=== PATIENT | female | born 1970 | race Caucasian/White ===

== ENCOUNTER 2018-01-21 11:33 | Outpatient (CLI) | payer OTHER, SELFPAY ==
[2018-01-21 14:31] LABS: TSH (W/Ref FT4) 1.79 uIU/mL (0.358-3.74)
[2018-01-22 13:42] LABS: Anion Gap 10.7 mmol/L (3-11); BUN 17 mg/dL (7-18); CO2 26.3 mmol/L (21.0-32.0); CREATININE 0.92 mg/dL (0.55-1.02); Calcium 8.8 mg/dL (8.5-10.1); Chloride 104 mmol/L (98-107); Cholesterol 186 mg/dL (50-200); Glucose 143 mg/dL (70-100); HDL Cholesterol 62 mg/dL (40-60); LDL CHOLESTEROL 115 mg/dL (<100); Potassium 4.1 mmol/L (3.5-5.1); Sodium 141 mmol/L (136-145); Triglyceride 91 mg/dL (30-150)
== END 2018-01-21 11:53 ==
PROVIDERS: PCP Nurse Practitioner Family; Visit Provider Nurse Practitioner Family
DX: E03.9 Hypothyroidism, unspecified (principal); Z00.00 Encounter for general adult medical examination without abnormal findings
CPT/HCPCS: 36415; 80048; 80061; 83721; 84443

== ENCOUNTER 2018-09-16 15:27 | Emergency (ER) | payer OTHER, SELFPAY ==
[2018-09-16 15:31] VITALS: BP 123/94; PULSE 90; RESP 18; O2SAT 97
--- NOTE | 2018-09-16 15:45 | ED.GENADUL_ITS ---
Discharge Plan Disposition Patient Disposition: HOME Condition: Stable Discharge Details Chief Complaint: Nk/Back Pain Clinical Impression: Back pain Primary Care Provider: Nataliia Looney ED Provider: Lupe Covarrubias Home Meds and New Rx's Prescriptions: Continued levothyroxine 137 mcg tablet 137 mcg PO DAILY Qty: 90 RF: 4 Discharge Instructions Instructions: Back Pain (ED) Additional Instructions: Please return immediately to the emergency department he develop any new or worsening symptoms or if you become otherwise concerned. It is extremely important that you make an appointment to be seen as soon as possible by your primary care doctor in follow-up for this visit. Referrals: Nataliia Looney, RECEPTIONIST TELEPHONE OPERATOR [Primary Care Provider] - Tono Johnson PT [PHYSICAL THERAPIST] - Discharge Data Discharge Date/Time-TO BE ENTERED AT DEPARTURE: 09/16/18 18:00 Medical Decision Making Barbara Delaney is a 48 y/o woman with h/o hypothyroidism who presented to the emergency department with suddent onset low back that occurred JPTA while upstairs at work bending forward, has occurred in the past as well. On exam Pt is well and non-toxic appearing. No TTP of the back, no neuro deficit. Exam/hx not c/w aortic etiology, cauda equina syndrome, epidural abscess/hematoma or other cord compression, infectious etiology. Suspect lumbar strain vs disc herniation. Discussed treatment options with Pt including muscle relaxants, steroids, pain meds: Pt requested no treatment at this time, wants to rest, s tates this type of pain has always improved in the past with rest and no other intervention. Pt able to walk slowly but without other issue. I had a lengthy discussion with the Pt re: RTED precautions, importance of outpt f/u and home care. Pt verbalized understanding of the plan and was amenable. Pt was d/davin to home with clear plan for outpt f/u. All questions were answered. Pt walked out of ED without issue. HPI General Mode of arrival: ambulatory . Date/Time Provider Initiated Documentation: 09/16/18 15:44 . Limitations to Documentation: no limitations . Information obtained by: patient, RN notes reviewed and old records reviewed . HPI Narrative: Barbara Delaney is a 48 y/o woman with h/o hypothyroidism presenting to the emergency department with back pain. Pt reports that she works at [employer]. She states that she bent over and had sudden onset low back pain. Was not lifting at the time. Pt reports that pain felt like an electrical sensation in her low mid back, does not radiate. Pain is worse with standing and moving, improved with lying down. No numbness, weakness, tingling in the legs or saddle region. 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 Pt reports that she was previously well and in her usual state of health. Has been eating and drinking as usual. Takes no blood thinners, no h/o IVDU. She denies any other pain. Related Data Home Medications Medication Instructions Recorded Confirmed levothyroxine 137 mcg tablet 137 mcg PO DAILY #90 tab-cap 01/21/18 01/21/18 Previous Rx's Medication Instructions Recorded levothyroxine 137 mcg tablet 137 mcg PO DAILY #90 tab-cap 01/21/18 Allergies Allergy/AdvReac Type Severity Reaction Status Date / Time No Known Allergies Allergy Unverified 10/09/17 08:19 General Stated Complaint: Nk/Back Pain LEO: 3 Review of Systems Review of Systems Constitutional: denies fevers Eyes: denies eye pain ENT: denies facial pain, dental pain, sore throat Cardiovascular: denies chest pain, edema Respiratory: denies SOB, cough GI: denies abdominal pain, vomiting, diarrhea : denies flank pain MSK: denies neck pain, arthralgias, myalgias, reports low back pain Skin: denies rash Neuro: denies headaches, numbness, weakness [facility] Medical History Hypothyroidism (Chronic 09/17/12) Surgical History History of bilateral ligation of fallopian tubes (Inactive ~2001) Family History Mother COPD (chronic obstructive pulmonary disease) Father Brain cancer Lung cancer Sister Alcohol abuse Brother Stroke Sister Alcohol abuse Daughter No problems noted. Daughter No problems noted. Daughter No problems noted. Maternal Grandfather No problems noted. Maternal Grandmother Alzheimer disease Paternal Grandfather Myocardial infarction Heart disease Paternal Grandmother Breast cancer Social History Smoking/Tobacco Use Status: Never Alcohol Intake: current Alcohol Intake frequency: 0-2 drinks per day Substance use type: does not use Household members: other Details: 5 current occupation: RN Pets and animals: Yes Pets and animals: dog(s) Duration: 45-60 minutes/day Frequency: 1-2 times per week Kareen/Gnosticist: Hindu Special kareen needs: No Seatbelt use: always Do you feel safe at home: Yes Do you feel safe in your relationship?: Yes Exam Narrative Exam Narrative: Constitutional: well and [id number], pleasant, conversing normally, appears uncomfortable with movement HENT: head atraumatic/normocephalic/normal inspection, mucous membranes moist Eyes: conjunctiva normal, sclera normal, pupils 3mm b/l Neck: no stridor, normal ROM, trachea midline Resp: normal work of breathing, LCTAB Cardio: normal rate, normal rhythm, no murmur appreciated GI: abdomen soft, non-tender, non-distended, no mass Back: normal inspection, no rash, no vertebral or pasraspinal TTP, no crepitus, no deformity Skin: warm, dry, normal color, no rash Neuro: alert, not altered, grossly non-focal, normal tone, motor 5/5 b/l LEs, sensation intact b/l LEs and saddle region Ext: no edema Psych: normal mood, normal affect, normal behavior Course Vital Signs Pulse 90 09/16/18 15:31 Respiratory Rate 18 09/16/18 15:31 Blood Pressure 123/94 H 09/16/18 15:31 Pulse Oximetry 97 09/16/18 15:31 Pulse 90 09/16/18 15:31 Respiratory Rate 18 09/16/18 15:31 Respiratory Effort 09/16/18 15:35 Blood Pressure 123/94 H 09/16/18 15:31 Blood Pressure Position Standing 09/16/18 15:31 Pulse Oximetry 97 09/16/18 15:31 Oxygen Delivery Method Room Air 09/16/18 15:31 Oxygen Flow Rate 0 09/16/18 15:31
--- NOTE | 2018-09-16 17:51 | NUR.NOTE ---
pt easily ambulated to the BR states feeling better Nursing Note:
== END 2018-09-16 18:00 | disposition home or self-care (01) ==
PROVIDERS: Emergency Provider Student in an Organized Health Care Education/Training Program; PCP Nurse Practitioner Family
DX: M54.5 Low back pain (principal); X50.9XXA Other and unspecified overexertion or strenuous movements or postures, initial encounter; Y99.0 Civilian activity done for income or pay
CPT/HCPCS: 81025; 99282

== ENCOUNTER 2019-01-24 06:39 | Outpatient (CLI) | payer OTHER, SELFPAY ==
[2019-01-24 07:55] LABS: Anion Gap 9.8 mmol/L (3-11); BUN 13 mg/dL (7-18); CO2 28.2 mmol/L (21.0-32.0); CREATININE 0.83 mg/dL (0.55-1.02); Calcium 9.3 mg/dL (8.5-10.1); Calculated LDL 127 mg/dL; Chloride 102 mmol/L (98-107); Cholesterol 212 mg/dL (50-200); Glucose 82 mg/dL (70-100); HDL Cholesterol 71 mg/dL (40-60); Potassium 4.4 mmol/L (3.5-5.1); Sodium 140 mmol/L (136-145); TSH 4.46 uIU/mL (0.36-3.74); Triglyceride 73 mg/dL (30-150)
[2019-01-24 08:15] LABS: FREE T4 1.43 ng/dL (0.76-1.46)
[2019-01-24 15:30] LABS: Hemoglobin A1C 5.5 % (4.5-6.2)
== END 2019-01-24 06:59 ==
PROVIDERS: PCP Nurse Practitioner Family; Visit Provider Nurse Practitioner Family
DX: Z00.00 Encounter for general adult medical examination without abnormal findings (principal); E03.9 Hypothyroidism, unspecified; E78.5 Hyperlipidemia, unspecified
CPT/HCPCS: 36415; 80048; 80061; 83036; 84439; 84443

== ENCOUNTER 2019-04-13 14:21 | Outpatient (CLI) | payer OTHER, SELFPAY ==
[2019-04-13 16:21] LABS: FREE T4 1.08 ng/dL (0.76-1.46); TSH 7.46 uIU/mL (0.36-3.74)
== END 2019-04-13 14:41 ==
PROVIDERS: PCP Nurse Practitioner Family; Visit Provider Nurse Practitioner Family
DX: E03.9 Hypothyroidism, unspecified (principal)
CPT/HCPCS: 36415; 84439; 84443

== ENCOUNTER 2019-06-23 14:32 | Outpatient (CLI) | payer OTHER, SELFPAY ==
[2019-06-23 16:17] LABS: FREE T4 1.24 ng/dL (0.76-1.46); TSH 1.07 uIU/mL (0.36-3.74)
== END 2019-06-23 14:52 ==
PROVIDERS: PCP Nurse Practitioner Family; Visit Provider Nurse Practitioner Family
DX: E03.9 Hypothyroidism, unspecified (principal)
CPT/HCPCS: 36415; 84439; 84443

== ENCOUNTER 2020-01-07 19:17 | Outpatient (REF) | payer OTHER, SELFPAY ==
[2020-01-07 20:59] LABS: Abs Immature Grans 0.02 10^3/uL (0.0-0.06); Absolute Basophil Count 0.08 10^3/uL (0.0-0.2); Absolute Eosinophil Count 0.14 10^3/uL (0.0-0.7); Absolute Lymphocyte Count 1.36 10^3/uL (1.2-3.4); Absolute Monocyte Count 0.48 10^3/uL (0.1-0.8); Basophils % 1.2; Eosinophils % 2.2; HCT 40.5 % (36.0-46.0); HGB 13.5 g/dL (11.2-15.7); Immature Grans % 0.3; MCH 29.8 pg (27.0-33.0); MCHC 33.3 % (32.0-36.0); MCV 89.4 fL (80-95); MPV 10.7 fL (8.0-11.0); Monocytes % 7.4; Neutrophils % 67.9; Nucleated RBC 0 %; Platelet Count 287 10^3/uL (130-400); RBC 4.53 10^6/uL (3.93-5.22); RDW 12.5 % (11.7-14.6); RDW-SD 40.7 fL; WBC 6.48 10^3/uL (4.4-10.8)
[2020-01-07 21:28] LABS: ALT 43 U/L (14-59); AST 26 U/L (15-37); Albumin 4.1 g/dL (3.4-5.0); Alkaline Phosphatase 78 U/L (46-116); Anion Gap 9.7 mmol/L (3-11); BUN 13 mg/dL (7-18); Bilirubin, Total 0.3 mg/dL (0.2-1.0); CO2 26.3 mmol/L (21.0-32.0); CREATININE 0.85 mg/dL (0.55-1.02); Calcium 9.5 mg/dL (8.5-10.1); Chloride 103 mmol/L (98-107); Glucose 82 mg/dL (74-106); Potassium 3.9 mmol/L (3.5-5.1); Sodium 139 mmol/L (136-145); TSH (W/Ref FT4) 1.96 uIU/mL (0.36-3.74); Total Protein 6.8 g/dL (6.4-8.2)
== END 2020-01-07 19:37 ==
LOC: LBN 19:17
PROVIDERS: PCP Nurse Practitioner Family; Visit Provider Physician Assistant
DX: R42 Dizziness and giddiness (principal)
CPT/HCPCS: 80053; 84443; 85025

== ENCOUNTER 2020-04-26 10:53 | Outpatient (CLI) | payer OTHER, SELFPAY ==
--- NOTE | 2020-04-26 10:45 | DI.RAD_ITS ---
EXAM: XR SHOULDER RT COMPLETE 2+V CLINICAL HISTORY: Right shoulder pain. TECHNIQUE: 2D digital imaging was performed. COMPARISON: No exams were available for comparison FINDINGS: BONES: No acute fracture is present. No bony destructive lesion is seen. JOINTS: No dislocation present. SOFT TISSUE: There is a calcification adjacent to the greater tuberosity consistent with calcific ten dinitis. IMPRESSION: Calcific tendinitis of the right shoulder. DATA REPOSITORY: RADIATION DOSE DELIVERED:
== END 2020-04-26 11:13 ==
PROVIDERS: PCP Nurse Practitioner Family; Visit Provider Student in an Organized Health Care Education/Training Program
DX: M75.31 Calcific tendinitis of right shoulder (principal)
CPT/HCPCS: 73030

== ENCOUNTER → 2021-08-28 01:58 | Outpatient (CLI) | payer OTHER, SELFPAY ==
--- NOTE | 2021-08-28 10:30 | DI.MAMMO_ITS ---
Exam(s) MAMMO SCREENING EXAM: MAMMO SCREENING CLINICAL HISTORY: screening, Z12.39 TECHNIQUE: Mammograms were interpreted according to the usual protocol including computer analysis w [employer] CAD system, tomosynthesis and C-view imaging. COMPARISON: FINDINGS: The breasts are heterogeneously dense. No dominant mass or clumped microcalcification is identified in either breast. The current examination is compared with previous examinations including June and there has been no gross interval change in appearance in comparison with the prior studies. IMPRESSION: No specific evidence of malignancy at this time. Routine screening examinations are suggested at yea rly intervals due to the family history of breast carcinoma. BI-RADS Category 1 - Negative Breast Density - Category C - Heterogeneously dense
== END ==
PROVIDERS: PCP Nurse Practitioner Family; Visit Provider Nurse Practitioner Family
DX: Z12.31 Encounter for screening mammogram for malignant neoplasm of breast (principal); Z80.3 Family history of malignant neoplasm of breast
CPT/HCPCS: 77063; 77067

== ENCOUNTER 2021-11-25 07:49 | Outpatient (REF) | payer OTHER, SELFPAY ==
[2021-11-25 09:12] LABS: Anion Gap 4.8 mmol/L (3-11); BUN 22 mg/dL (7-18); CO2 30.2 mmol/L (21.0-32.0); CREATININE 0.8 mg/dL (0.55-1.02); Calcium 9.6 mg/dL (8.5-10.1); Chloride 103 mmol/L (98-107); FREE T4 1.44 ng/dL (0.76-1.46); Glucose 95 mg/dL (74-106); Potassium 4.2 mmol/L (3.5-5.1); Sodium 138 mmol/L (136-145); TSH 1.16 uIU/mL (0.36-3.74)
== END 2021-11-25 07:50 | disposition home or self-care (01) ==
LOC: LBN 07:49
PROVIDERS: PCP Nurse Practitioner Family; Visit Provider Nurse Practitioner Family
DX: E03.9 Hypothyroidism, unspecified (principal)
CPT/HCPCS: 80048; 84439; 84443

== ENCOUNTER 2022-05-09 13:02 | Outpatient (REF) | payer OTHER, SELFPAY ==
--- NOTE | 2022-05-09 10:15 | PAPFT_PTH ---
PATIENT: Barbara Delaney LOC: [facility] U#:[id number] AGE/SX: 51/F ROOM: RE05/09/[address]: EMMANUELLE Gordon : 1970 BED: DIS: 05/09/2022 SPEC #: [id number] RECD: 05/09/22 13:08 STATUS: KATE REHannah #: [id number] WILVER: 05/09/22 10:[address]: Nataliia Looney DEPT: [facility] Cytology RECD BY: Piedad Joshua Tissues: 1 - CX/ENDOCX FOR PAP SMEARS Procedures: PAP THIN PREP/UVM Screening HPV DNA PROBE Comments: [id number]
== END 2022-05-09 13:03 | disposition home or self-care (01) ==
LOC: LBN 13:02
PROVIDERS: PCP Nurse Practitioner Family; Visit Provider Nurse Practitioner Family
DX: Z12.4 Encounter for screening for malignant neoplasm of cervix (principal); Z11.51 Encounter for screening for human papillomavirus (HPV)
CPT/HCPCS: 88142; 87624

== ENCOUNTER 2022-07-03 06:53 | Day surgery (SDC) | payer OTHER, SELFPAY ==
[2022-07-03 07:11] VITALS: BP 129/88; PULSE 83; RESP 16; TEMP 36.4; O2SAT 100
--- NOTE | 2022-07-03 07:34 | ANES.PREOP_ITS ---
General Info Date of Service Date Performed: 07/03/22 Height: 5 ft 4 in Weight: 69 kg Body Mass Index (BMI): 26.1 Surgical Procedure: Operation Date: 07/03/22 08:20 Proposed Procedure Side Surgeon p Michelle Day MD Meds Allergies and Home Medications Allergies Allergy/AdvReac Type Severity Reaction Status Date / Time No Known Allergies Allergy Verified 07/02/22 11:36 Home Medication Medication Instructions Recorded levothyroxine 150 mcg tablet 150 mcg PO DAILY #90 tabs 11/30/21 valacyclovir 1 gram tablet 1,000 mg PO DAILY PRN cold sores 06/25/22 (Valtrex) #20 tabs Current Visit Medications: Current Medications Generic Name Dose Route Start Last Admin Trade Name Freq PRN Reason Stop Dose Admin Ringer's Solution 1,000 mls @ 80 mls/hr 07/03/22 06:00 IV 08/01/22 23:59 INFUSION MYESHA IV Miscellaneous Supplies 1 each 07/03/22 06:00 Iv Access IV 08/01/22 23:59 DIRECTED MYESHA Sodium Chloride 0 ml 07/03/22 06:00 Normal Saline Flush 10 Ml Syr IV 08/01/22 23:59 PRN PRN Sodium Chloride 0 ml 07/03/22 06:00 Normal Saline 10 Ml Vial IJ 08/01/22 23:59 DIRECTED PRN Sterile Water 0 ml 07/03/22 06:00 Water,Injection,Sterile 10 Ml Vial IJ 08/01/22 23:59 DIRECTED PRN PFSH Active Problems Active Problems: Problem Status Onset Code Positive colorectal cancer screening using Cologuard test R19.5 Severe menstrual cramps N94.6 Hyperlipidemia E78.5 Hypothyroidism E03.9 Medical History Medical History Comments:: 07/02/22 pt reports she vomited on drive home post- colonoscopy 10 years ago. Unable to obtain HCG test as pt unable to pass urine Surgical History Surgical History History of bilateral ligation of fallopian tubes (~2001) Tobacco Smoking/Tobacco Use Status: Never Passive smoking exposure: Yes Alcohol Alcohol Intake: current Alcohol intake frequency: holidays/special occasions only Alcohol type: wine Substance Use Substance use: Never Substance use type: does not use Prental History History 3 Para 3 Hx # Term Pregnancies Multiple births Hx # Pregnancies Ectopic pregnancies AB induced Hx Number of Living Children 3 AB spontaneous Vital Signs and Lab Results Vital Signs Most Recent Vital Signs in EMR: Most Recent Vital Signs Temp Pulse Resp BP Pulse Ox 36.4 C L 83 16 129/88 100 07/03/22 07:11 07/03/22 07:11 07/03/22 07:11 07/03/22 07:11 07/03/22 07:11 Lab Results Blood Type / Crossmatch: No Data to Display Complete Blood Count: No Data to Display Complete Metabolic Panel: No Data to Display Liver Function Panel: No Data to Display Coagulation Panel: No Data to Display Cardiac Panel: No Data to Display Arterial Blood Gas: No Data to Display Venous Blood Gas: No Data to Display Pancreas Panel: No Data to Display Thyroid Panel: No Data to Display Infectious Disease: No Data to Display Blood Cultures: No Data to Display Toxicology Panel: No Data to Display Panel: No Data to Display Imaging and Studies Imaging and Studies Study information below may be from another EMR and interpreted by another provider. Please see original notes in EMR for more complete details. EKG Summary: Conclusion Sinus rhythm...normal P axis, V-rate 60- 99 Ventricular premature complex...V complex w/ short R-R interval Probable left atrial enlargement...P >50mS, <-0.10mV V1 Anesthesia Assessment and Plan Anesthesia History Personal History: No History of Anesthesia Complications Family History: No Family History of Anesthesia Complications Exercise Tolerance Exercise Tolerance: Metabolic Equivalents>4 Pertinent Negatives Pertinent Negatives: No Symptoms of GERD Cardiac & Pulmonary Exam Cardiac Exam: Normal S1/S2 Heart Sounds Pulmonary Exam: Clear Bilateral Breath Sounds Implantable Cardiac Device Does patient have a Pacemaker or an ICD?: No Airway Exam Known Difficult Airway: No Mallampati Class: 1 Mouth Opening: Normal (> 3cm) Thyromental Distance: Greater than 3 cm Neck Range of Motion: Full ROM Neck Circumference: Normal Teeth Condition: Normal Dentition ASA Classification ASA Score: ASA 2 Emergency Case?: No NPO Status NPO Status: NPO Clears >2 hours, Solids >8 hours Status Status: Not Relevant due to Medical History Anesthesia Plan Resuscitation Status: Full Code Anesthesia Technique: General Anesthesia Airway Planned: Natural Airway Monitors Used: Standard Monitors
[2022-07-03] MEDS: Lactated Ringers 1,000 ML 80 ML IV (07:35)
[2022-07-03 07:43] VITALS: BMI 26.1
--- NOTE | 2022-07-03 09:16 | W.COLOREPORT ---
Date of service: 07/03/22 Time of Service: 09:16 Colonoscopy Report Procedure Description: Procedures performed: 1. Colonoscopy Preoperative diagnosis: Positive Cologuard Postoperative diagnosis: Pandiverticulosis, grade 1?2 internal hemorrhoids Surgeon: Clementina Day Anesthesia: Boubacar Indication for procedure: Patient is a 51-year-old woman who has had a previous colonoscopy about 20 years ago for suspected Peutz-Jeghers syndrome(reportedly ruled out). She does not have a family history of colon cancer. She does not have a history of colon polyps in the family. No abnormal findings on that prior colonoscopy. She is not having symptoms. She took the Cologuard test for screening purposes and it came back positive. Findings: The terminal ileum was normal. Extensive diverticular disease is present throughout the entire colon. She has significant diverticulosis in the right and transverse colon. An inverted diverticulum was seen that appeared to be medium?size polyp however close inspection of this was determined that this was indeed an inverted tic and it was left alone. So overall no polyps were found or seen. Grade 1?2 internal hemorrhoids are noted. Surveillance/follow-up recommendations: I recommend repeating another colonoscopy in 10 years. One should be done sooner if bowel habit changes were to develop or any unusual symptoms. Complications: None Blood loss: Minimal Specimens:?? None Quality of Prep:?? Good Procedure in detail: Written consent was obtained from the patient who was in agreement with the risks, benefits and indications of the procedure.? We went to the endoscopy suite and laid the patient in left lateral decubitus position.? Anesthesia was administered which was tolerated well.? A timeout was performed and when we are all in agreement we began the procedure. Digital rectal exam and visual examination was performed and within normal limits.? A well?lubricated colonoscope was advanced without difficulty all the way to the cecum identified by the ileocecal valve, and triangular folds and appendiceal orifice.? The terminal ileum was briefly intubated and had a normal appearance it was then slowly withdrawn.?? Retroflexion was performed in the rectum.? The findings/interventions are noted above. The scope was then removed and the patient tolerated the procedure well and was then taken back to the PACU in hemodynamically stable condition.
[2022-07-03 09:20] VITALS: BP 90/78; PULSE 74; RESP 16; TEMP 36.4; O2SAT 100
--- NOTE | 2022-07-03 09:28 | W.ANESPOSTOP ---
Postoperative Evaluation Date, Time and Location Date Performed: 07/03/22 Time Performed: Patient Location: Day Surgery Unit Vital Signs Most Recent Imported Vital Signs: Most Recent Vital Signs Temp Pulse Resp BP Pulse Ox 36.4 C L 74 16 90/78 L 100 07/03/22 09:20 07/03/22 09:20 07/03/22 09:20 07/03/22 09:20 07/03/22 09:20 Pain Score Most Recent Pain Score: Most Recent Pain Score Pain Level 0 07/03/22 09:20 Assessment Mental Status: Awake (Alert & Oriented to Patient Baseline) Airway and Respiratory Function: Patent airway with normal (patient baseline) respiratory exam Cardiovascular Function: Hemodynamically Stable Hydration Status: Adequately Hydrated Nausea & Vomiting: No Nausea or Vomiting Pain: Pt. Denies Any Pain Peripheral Nerve Block: Patient did not receive a nerve block
[2022-07-03 09:47] VITALS: BP 111/75; PULSE 61; RESP 16; TEMP 37; O2SAT 97
== END 2022-07-03 10:25 | disposition home or self-care (01) ==
PROVIDERS: PCP Nurse Practitioner Family; Visit Provider Student in an Organized Health Care Education/Training Program
PROC: 0DJD8ZZ Inspection of Lower Intestinal Tract, Via Natural or Artificial Opening Endoscopic (ICD-10-PCS; CPT 45378; principal; 2022-07-03 08:15)
DX: R19.5 Other fecal abnormalities (principal); K57.30 Diverticulosis of large intestine without perforation or abscess without bleeding; K64.2 Third degree hemorrhoids
CPT/HCPCS: 45378

== ENCOUNTER 2022-08-19 10:39 | Outpatient (CLI) | payer OTHER, SELFPAY ==
--- NOTE | 2022-08-19 10:15 | DI.CT_ITS ---
Exam(s) CT ABDOMEN PELVIS W EXAM: CT ABDOMEN PELVIS W CLINICAL HISTORY: severe lower abd pain R10.9 DIVERTICULOSIS K57.90. TECHNIQUE: Imaging Protocol: Axial computed tomography images with coronal and sagittal reformatted images were created and reviewed CONTRAST MATERIAL: Intravenous: Omnipaque 350 Contrast volume:100 ml Oral: yes / COMPARISON: CT RENAL COLIC WO CONTRAST from 05/06/2016 FINDINGS: ABDOMEN: Lung Bases: Normal where visualized. Tiny hiatal hernia. Liver: Normal density. No measurable mass. Gallbladder and biliary tract: No radiodense calculus or dilation. Pancreas: Normal density, no abnormal calcifications or inflammatory process. Spleen: Normal. Kidneys: Normal size, contour and axis. No radiodense stones or obstructive uropathy. No suspicious m asses seen. Adrenal glands: No masses seen. Abdominal Aorta: Abdominal portion non-dilated. Soft tissues: Unremarkable. PELVIS: Bladder: No gross wall thickening. No calculi.No focal mass. Bowel: No obstruction. Multiple diverticula sigmoid region. Marked wall thickening and surrounding inflammation, consistent with diverticulitis. Arm no free air or abscess. Peritoneal cavity: No ascites, collection or mesenteric inflammatory response. Bones: Unremarkable for age. Reproductive organs: Uterus enlarged, similar to prior. Ovaries unremarkable. Lymph nodes: Unremarkable. Impression: Sigmoid diverticulitis. No perforation or abscess. RADIATION DOSE DELIVERED: 885.34mGy.cm Total DLP DATA REPOSITORY: All CT scans at this facility are submitted to the National Radiology Data Registry (NRDR) Dose Index Registry (DIR) with the [employer] (ACR). RADIATION OPTIMIZATION: All CT scans at this facility use at least one of these dose optimization te chniques: automated exposure control; mA and/or kV adjustment per patient size (includes targeted exa ms where dose is matched to clinical indication); or iterative reconstruction.
[2022-08-19 11:13] LABS: Abs Immature Grans 0.05 10^3/uL (0.0-0.06); Absolute Basophil Count 0.07 10^3/uL (0.0-0.2); Absolute Eosinophil Count 0.09 10^3/uL (0.0-0.7); Absolute Lymphocyte Count 0.88 10^3/uL (1.2-3.4); Absolute Monocyte Count 0.79 10^3/uL (0.1-0.8); Absolute Neutrophil Count 6.66 10^3/uL (1.2-6.7); Basophils % 0.8; Eosinophils % 1.1; HGB 12.7 g/dL (11.2-15.7); Immature Grans % 0.6; Lymphocytes % 10.3; MCHC 33.4 % (32.0-36.0); MCV 90 fL (80-95); MPV 9.9 fL (8.0-11.0); Monocytes % 9.3; Neutrophils % 77.9; Platelet Count 265 10^3/uL (130-400); RBC 4.23 10^6/uL (3.93-5.22); RDW 13.2 % (11.7-14.6); RDW-SD 43.8 fL; WBC 8.54 10^3/uL (4.4-10.8)
[2022-08-19] MEDS: Barium Sulfate 2% W/V-Berry Smoothie 450 ML BTL 900 ML PO (11:17)
[2022-08-19 11:30] LABS: ALT 58 U/L (14-59); AST 28 U/L (15-37); Albumin 3.4 g/dL (3.4-5.0); Alkaline Phosphatase 160 U/L (46-116); Anion Gap 7.5 mmol/L (3-11); BUN 12 mg/dL (7-18); Bilirubin, Total 0.4 mg/dL (0.2-1.0); CO2 26.5 mmol/L (21.0-32.0); CREATININE 0.8 mg/dL (0.55-1.02); Calcium 9.2 mg/dL (8.5-10.1); Chloride 103 mmol/L (98-107); Estimated GFR 89.15 (mL/min/1.73m2); Glucose 75 mg/dL (74-106); Potassium 3.9 mmol/L (3.5-5.1); Sodium 137 mmol/L (136-145); Total Protein 7.4 g/dL (6.4-8.2)
[2022-08-19] MEDS: Normal Saline - Diluent 50 ML VIAL IJ (12:49)
[2022-08-19] MEDS: Omnipaque 350 MG/ML 100 ML BTL IJ (12:49)
== END 2022-08-19 10:59 ==
LOC: DI 10:40
PROVIDERS: PCP Nurse Practitioner Family; Visit Provider Nurse Practitioner Family
DX: K57.90 Diverticulosis of intestine, part unspecified, without perforation or abscess without bleeding (principal)
CPT/HCPCS: 80053; 74177; 85025; 87086; J3490

== ENCOUNTER 2022-08-19 18:31 | Outpatient (REF) | payer OTHER, SELFPAY | END 2022-08-19 18:32 | disposition home or self-care (01) | LOC: LBN 18:31 | PROVIDERS: PCP Nurse Practitioner Family; Visit Provider Nurse Practitioner Family | DX: R10.31 Right lower quadrant pain (principal); R82.998 Other abnormal findings in urine | CPT/HCPCS: 87086 ==

== ENCOUNTER 2022-09-05 01:39 | Outpatient (CLI) | payer OTHER, SELFPAY ==
--- NOTE | 2022-09-05 06:30 | DI.MAMMO_ITS ---
Exam(s) MAMMO SCREENING EXAM: MAMMO SCREENING CLINICAL HISTORY: screening,z12.39. TECHNIQUE: Bilateral full field digital CC and MLO mammographic images were obtained with 3D tomosyn thesis and utilizing computer aided detection (CAD). COMPARISON: Prior mammograms were reviewed. FINDINGS: The fibroglandular tissue pattern is again noted dense, this somewhat decreasing the sensitivity of t he mammogram for finding hidden underlying lesions. In the left breast on the 3D MLO view there is a round 2-3 millimeter nodular density seen 7 cm back from the nipple. In the right breast on the CC view there is an asymmetric density-subtle suggestion of possible nodul e medial of center, measuring 9 x 8 mm, approximately 4 cm in from the nipple. This is equivocal on 3D imaging. There are no malignant-appearing microcalcification groups in either breast. There is no significant architectural distortion nor skin thickening-retraction. IMPRESSION: Dense bilateral fibroglandular tissue. Suggestion of bilateral nodular densities. Spot compression views of both breasts and bilateral breast ultrasound recommended. BI-RADS Category 0 - Assessment Incomplete: Need additional imaging evaluation Breast Density - Category C - Heterogeneously dense Breast density Category C or D implies that the patient has dense breast tissue. Dense breast tissue can make it harder to find cancer on a mammogram. Dense breast tissue is also associated with an incr eased risk of breast cancer. This information about the result of the mammogram report was provided to the patient to raise their awareness. Use this report when you speak with the patient about their risks for breast cancer, which includes their family history. At that time, you may recommend additional screening tests (Ultrasoun d or MRI) as these tests may add significant information. A negative radiographic report should not delay biopsy if a dominant or clinically suspicious mass is present. Up to ten percent of cancers are not identified on mammography. A negative report may reinforce clinical impression. Adenosis and dense breasts may obscure an underlying neoplasm. False positive reports average 6 to 10%. Patient will receive a letter notifying them of these results.
== END 2022-09-05 01:59 ==
LOC: DI 01:39
PROVIDERS: PCP Nurse Practitioner Family; Visit Provider Nurse Practitioner Family
DX: Z12.31 Encounter for screening mammogram for malignant neoplasm of breast (principal)
CPT/HCPCS: 77063; 77067

== ENCOUNTER 2022-09-12 01:49 | Outpatient (CLI) | payer OTHER, SELFPAY ==
--- NOTE | 2022-09-12 | DI.US_ITS ---
Exam(s) US BREAST LT COMPLETE US BREAST RT LIMITED MG MAMMO SCREEN CALL BACK BI EXAM: MG MAMMO SCREEN CALL BACK BI, U/S breast RT limited and U/S breast LT complete CLINICAL HISTORY: F/U MAMMO, R92.8,DENSE TISSUE,SUGGESTION OF BILAT NODULAR DENSITIES. TECHNIQUE: Craniocaudal and mediolateral oblique Full Field Digital Mammography views of the bilat b reast with Computer Aided Diagnosis followed by Tomosynthesis and bilateral breast ultrasound. COMPARISON: Comparison is made with prior examinations. FINDINGS: Mammography/Tomosynthesis: Masses/Architectural Distortion: In the right breast, the area of concern is less prominent when comp ared to the prior examination. In the left breast, the area of nodularity in the posterior central l eft breast on the MLO view is not visualized on the current examination. Microcalcifictions: No suspicious pleomorphic-type are seen. Skin Thickening/Nipple Retraction: None. Right limited incomplete left breast US: Echotexture: Normal appearance of the glandular tissue. Shadowing: No suspicious foci. Cyst: In the right breast, simple cysts are seen at the 1 o'clock position 1 cm from the nipple. The larger measures 0.5 x 0.4 x 0.4 cm. The smaller measures 0.4 x 0.3 x 0.3 cm. There is a cyst seen at the 12 o'clock position of the left breast. There is also cysts seen at the 2 o'clock position of the left breast 2 cm from the nipple measuring 8 mm maximally. . Solid lesions: There is an intraparenchymal lymph node at the 1 o'clock position of the left breast 2 cm from the nipple measuring 1.0 x 0.6 x 0.4 cm. An intraparenchymal lymph node is also seen at th e 6 o'clock position of the left breast 2 cm from the nipple. Ductal dilation: None. IMPRESSION: 1. No evidence of malignancy is noted. 2. Unless there is more urgent need, follow-up screening mammography is recommended, as per [employer] guidelines. 3. The findings were discussed with the patient on the date of the examination. BI-RADS Category 2 - Benign Findings Breast Density - Category C - Heterogeneously dense Breast density Category C or D implies that the patient has dense breast tissue. Dense breast tissue can make it harder to find cancer on a mammogram. Dense breast tissue is also associated with an incr eased risk of breast cancer. This information about the result of the mammogram report was provided to the patient to raise their awareness. Use this report when you speak with the patient about their risks for breast cancer, which includes their family history. At that time, you may recommend additional screening tests (Ultrasoun d or MRI) as these tests may add significant information. A negative radiographic report should not delay biopsy if a dominant or clinically suspicious mass is present. Up to ten percent of cancers are not identified on mammography. A negative report may reinforce clinical impression. Adenosis and dense breasts may obscure an underlying neoplasm. False positive reports average 6 to 10%. Patient will receive a letter notifying them of these results.
== END 2022-09-12 02:09 ==
LOC: DI 01:50
PROVIDERS: PCP Nurse Practitioner Family; Visit Provider Nurse Practitioner Family
DX: Z12.31 Encounter for screening mammogram for malignant neoplasm of breast (principal); R92.8 Other abnormal and inconclusive findings on diagnostic imaging of breast
CPT/HCPCS: 76642; 77063; 77067

== ENCOUNTER 2022-11-04 09:23 | Outpatient (REF) | payer OTHER, SELFPAY ==
[2022-11-04 10:30] LABS: BUN 18 mg/dL (7-18); CREATININE 0.9 mg/dL (0.55-1.02); Calcium 9.4 mg/dL (8.5-10.1); Calculated LDL 144 mg/dL (<100); Chloride 104 mmol/L (98-107); Cholesterol 220 mg/dL (<200); Glucose 92 mg/dL (74-106); HDL Cholesterol 60 mg/dL (40-60); Potassium 4.9 mmol/L (3.5-5.1); Sodium 139 mmol/L (136-145); Triglyceride 82 mg/dL (<150)
[2022-11-04 10:51] LABS: FREE T4 1.55 ng/dL (0.76-1.46)
== END 2022-11-04 09:24 | disposition home or self-care (01) ==
LOC: LBN 09:23
PROVIDERS: PCP Nurse Practitioner Family; Visit Provider Nurse Practitioner Family
DX: E03.9 Hypothyroidism, unspecified (principal); E78.5 Hyperlipidemia, unspecified
CPT/HCPCS: 80048; 80061; 84439; 84443

== ENCOUNTER 2023-11-17 14:06 | Outpatient (CLI) | payer OTHER, SELFPAY ==
[2023-11-17 12:42] LABS: HCT 41.6 % (36.0-46.0); HGB 13.6 g/dL (11.2-15.7); MCH 28.6 pg (27.0-33.0); MCHC 32.7 % (32.0-36.0); MCV 88 fL (80-95); MPV 10.3 fL (8.0-11.0); Platelet Count 325 10^3/uL (130-400); RBC 4.75 10^6/uL (3.93-5.22); RDW 13.6 % (11.7-14.6); RDW-SD 43.6 fL; WBC 7.37 10^3/uL (4.4-10.8)
[2023-11-17 13:04] LABS: Hemoglobin A1C 5.6 % (<5.7)
[2023-11-17 13:44] LABS: ALT 61 U/L (14-59); AST 42 U/L (15-37); Albumin 3.7 g/dL (3.4-5.0); Alkaline Phosphatase 81 U/L (46-116); Anion Gap 8.4 mmol/L (3-11); BUN 14 mg/dL (7-18); Bilirubin, Total 0.38 mg/dL (0.2-1.0); CO2 26.6 mmol/L (21.0-32.0); CREATININE 0.9 mg/dL (0.55-1.02); Calcium 9.1 mg/dL (8.5-10.1); Calculated LDL 117 mg/dL (<100); Chloride 106 mmol/L (98-107); Cholesterol 207 mg/dL (<200); Estimated GFR 76.92 (mL/min/1.73m2); Glucose 92 mg/dL (74-106); HDL Cholesterol 61 mg/dL (40-60); Potassium 4.1 mmol/L (3.5-5.1); Sodium 141 mmol/L (136-145); TSH (W/Ref FT4) 0.44 uIU/mL (0.36-3.74); Triglyceride 146 mg/dL (<150)
[2023-11-17 23:36] LABS: HIV-1/2 Ag & Ab Screen Negative (Negative)
[2023-11-17 23:38] LABS: Hepatitis C Ab w Rflx HCV PCR Negative (Negative)
[2023-11-17 23:40] LABS: HBs Antibody, Quant 78.7 mIU/mL (See Note); Hep B Surface Ab Positive (See Note); Hepatitis B Core Antibody Negative (Negative); Hepatitis B Surface Antigen Negative (Negative)
== END 2023-11-17 14:07 | disposition home or self-care (01) ==
LOC: LBO 14:07
PROVIDERS: PCP Nurse Practitioner Family; Visit Provider Nurse Practitioner Family
DX: E03.9 Hypothyroidism, unspecified (principal); E78.5 Hyperlipidemia, unspecified; Z00.00 Encounter for general adult medical examination without abnormal findings; Z11.59 Encounter for screening for other viral diseases; Z11.4 Encounter for screening for human immunodeficiency virus [HIV]
CPT/HCPCS: 36415; 80053; 80061; 85027; 86704; 86706; 86803; 87340; 87389; 83036; 84443

== ENCOUNTER 2024-02-02 16:40 | Outpatient (CLI) | payer OTHER, SELFPAY ==
[2024-02-02 18:10] LABS: ALT 36 U/L (14-59); AST 25 U/L (15-37); Albumin 3.9 g/dL (3.4-5.0); Alkaline Phosphatase 90 U/L (46-116); Bilirubin, Total 0.47 mg/dL (0.2-1.0)
[2024-02-02 18:24] LABS: Bilirubin, Direct 0.1 mg/dL (0.0-0.2)
== END 2024-02-02 16:41 | disposition home or self-care (01) ==
LOC: LBO 16:42
PROVIDERS: PCP Nurse Practitioner Family; Visit Provider Nurse Practitioner Family
DX: R79.89 Other specified abnormal findings of blood chemistry (principal)
CPT/HCPCS: 36415; 80076

== ENCOUNTER 2024-11-15 22:36 | Outpatient (REF) | payer OTHER, SELFPAY ==
[2024-11-15 19:32] LABS: Anion Gap 7.3 mmol/L (3-11); BUN 21 mg/dL (7-18); CO2 27.7 mmol/L (21.0-32.0); Calcium 9.6 mg/dL (8.5-10.1); Chloride 106 mmol/L (98-107); Estimated GFR 88.05 (mL/min/1.73m2); Glucose 89 mg/dL (74-106); Potassium 4.5 mmol/L (3.5-5.1); Sodium 141 mmol/L (136-145); TSH (W/Ref FT4) 2.43 uIU/mL (0.36-3.74)
== END 2024-11-15 22:37 | disposition home or self-care (01) ==
LOC: LBO 22:36
PROVIDERS: PCP Nurse Practitioner Family; Visit Provider Nurse Practitioner Family
DX: Z00.00 Encounter for general adult medical examination without abnormal findings (principal); E03.9 Hypothyroidism, unspecified
CPT/HCPCS: 36415; 80048; 84443

== ENCOUNTER 2024-12-14 08:04 | Outpatient (CLI) | payer OTHER, SELFPAY ==
--- NOTE | 2024-12-14 07:47 | DI.MAMMO_ITS ---
Exam(s) MAMMO SCREENING EXAM: MAMMO SCREENING CLINICAL HISTORY: screening,z12.39. TECHNIQUE: Bilateral full field digital CC and MLO mammographic images were obtained with 3D tomosynthesis and utilizing computer aided detection (CAD). COMPARISON: Prior mammograms were reviewed. Prior ultrasound examination September 2022 was also reviewed. FINDINGS: Fibroglandular tissue pattern is again noted be dense, this somewhat decreasing the sensitivity of the mammogram for finding hidden underlying lesions. No new right breast findings. In the left breast the previously described nodular density on the MLO view is less evident but there is now a suggestion of a separate 6 mm nodular density located 4 cm in from the nipple on the MLO view. On the exaggerated CC view there is a similar size nodule seen located 6 cm in from the nipple slightly lateral of center. There are no malignant-appearing microcalcification groups in this region or elsewhere in either breast. There is no significant architectural distortion nor skin thickening-retraction. IMPRESSION: 1. No radiographic evidence of malignancy in right breast. 2. One, possibly two left breast nodules as described above. Spot compression CC and MLO views of the left breast are recommended as well as complete left breast ultrasound. BI-RADS Category 0 - Incomplete: Need additional imaging evaluation Breast Density - Category C - The breast are heterogeneously dense, which may obscure small masses. Breast density Category C or D implies that the patient has dense breast tissue. Dense breast tissue can make it harder to find cancer on a mammogram. Dense breast tissue is also associated with an increased risk of breast cancer. This information about the result of the mammogram report was provided to the patient to raise their awareness. Use this report when you speak with the patient about their risks for breast cancer, which includes their family history. At that time, you may recommend additional screening tests (Ultrasound or MRI) as these tests may add significant information. A negative radiographic report should not delay biopsy if a dominant or clinically suspicious mass is present. Up to ten percent of cancers are not identified on mammography. A negative report may reinforce clinical impression. Adenosis and dense breasts may obscure an underlying neoplasm. False positive reports average 6 to 10%. Patient will receive a letter notifying them of these results.
== END 2024-12-14 08:24 ==
LOC: DI 08:04
PROVIDERS: PCP Nurse Practitioner Family; Visit Provider Nurse Practitioner Family
DX: Z12.31 Encounter for screening mammogram for malignant neoplasm of breast (principal)
CPT/HCPCS: 77063; 77067

== ENCOUNTER 2024-12-20 00:41 | Outpatient (CLI) | payer OTHER, SELFPAY ==
--- NOTE | 2024-12-20 | DI.MAMMO_ITS ---
Exam(s) MAMMO SCREEN CALL BACK UNI EXAM: MAMMO SCREEN CALL BACK UNI CLINICAL HISTORY: 1 POSSIBLE 2 NODULES LEFT BREAST R92.8 ABNL MAMMO. TECHNIQUE: Craniocaudal and mediolateral oblique Full Field Digital Mammography views of the left breast with Computer Aided Diagnosis. COMPARISON: Comparison is made with prior examinations. FINDINGS: Mammography/Tomosynthesis: Masses/Architectural Distortion: The area of concern does not persist on the additional views. No masses or areas of architectural distortion are present. Microcalcifictions: No suspicious pleomorphic-type are seen. Skin Thickening/Nipple Retraction: None. IMPRESSION: 1. No evidence of malignancy is noted. 2. Unless there is more urgent need, follow-up screening mammography is recommended, as per [employer] guidelines. 3. The findings were discussed with the patient on the date of the examination. BI-RADS Category 1 - Negative Breast Density - Category C - The breast are heterogeneously dense, which may obscure small masses. Breast density Category C or D implies that the patient has dense breast tissue. Dense breast tissue can make it harder to find cancer on a mammogram. Dense breast tissue is also associated with an increased risk of breast cancer. This information about the result of the mammogram report was provided to the patient to raise their awareness. Use this report when you speak with the patient about their risks for breast cancer, which includes their family history. At that time, you may recommend additional screening tests (Ultrasound or MRI) as these tests may add significant information. A negative radiographic report should not delay biopsy if a dominant or clinically suspicious mass is present. Up to ten percent of cancers are not identified on mammography. A negative report may reinforce clinical impression. Adenosis and dense breasts may obscure an underlying neoplasm. False positive reports average 6 to 10%. Patient will receive a letter notifying them of these results.
== END 2024-12-20 01:01 ==
LOC: DI 00:41
PROVIDERS: PCP Nurse Practitioner Family; Visit Provider Nurse Practitioner Family
DX: Z12.31 Encounter for screening mammogram for malignant neoplasm of breast (principal); R92.8 Other abnormal and inconclusive findings on diagnostic imaging of breast
CPT/HCPCS: 77063; 77067